=== PATIENT | male | born 1930 | race Caucasian/White ===

== ENCOUNTER → 2016-05-28 | Outpatient (CLI) | payer OTHER ==
[~2016-05-28] MED LIST: ALL300 PO; CHOL2000 PO; CLON1TAB3 PO; CYAN100020 PO; ESCI10TA17 PO; FERR325T51 PO; FESO4TAB PO; FINA5TAB PO; FRRS300 PO; GABA-113 PO; LEVO50TA6 PO; METF500T5 PO; SIMV20TA2 PO; URX/10 PO
[2016-05-28 13:11] LABS: ALT/SGPT 21 U/L (12-78); AST/SGOT 18 U/L (15-37); BLOOD UREA NITROGEN 20 mg/dl (7-18); BUN/CREATININE RATIO 16.7 (10-20); CARBON DIOXIDE 30 mmol/L (21-32); CHLORIDE 106 mmol/L (98-107); GLUCOSE 109 mg/dl (70-99); POTASSIUM 4.5 mmol/L (3.5-5.1); SODIUM 141 mmol/L (136-145)
[2016-05-28 13:16] LABS: ALB/GLOB RATIO 1.1 (0.9-2); ALKALINE PHOSPHATASE 63 U/L (45-117); CHOLESTEROL 140 mg/dl (0-200); CHOLESTEROL/HDL RATIO 2.5; HDL CHOLESTEROL 56 mg/dl; LDL CHOLESTEROL CALCULATED 66 mg/dl; TRIGLYCERIDES 89 mg/dl (0-150); VERY LOW DENSITY LIPOPROT CALC 18 mg/dl
[2016-05-28 13:23] LABS: ESTIMATED AVERAGE GLUCOSE 143 mg/dl; HA1C FLAG Normal (Normal)
[2016-05-28 13:52] LABS: RATIO 104.4 mcg/mg (0-30.0)
[2016-05-28 14:53] LABS: BASO % 0.3 %; BASO ABS # 0.02 K/uL (0-0.2); COMPLETE YES; EOS % 11.4 %; HEMATOCRIT 35.3 % (42-52); IG% 0.3 %; LYMPH % 38.9 %; LYMPH ABS # 2.76 K/uL (1.2-3.4); MEAN CELL VOLUME 94.4 fL (80-100); MEAN CORPUSCULAR HGB CONC 32.9 g/dl (32-36); MEAN PLATELET VOLUME 11.7 fL (7.4-10.4); MONO % 9.4 %; NEUT % 39.7 %; PLATELET COUNT 155 K/uL (130-400); RED BLOOD COUNT 3.74 M/uL (4.7-6.1); WHITE BLOOD COUNT 7.09 K/uL (4.8-10.8)
--- NOTE | 2016-06-01 13:28 | CODING QUERY MEDICAL NECESSITY ---
SUPPORTING DIAGNOSIS NEEDED A supporting diagnosis is required for the test/procedure performed on this patient in order for us to be reimbursed by the patient's insurance. Please provide a supporting diagnosis for the following test/procedure listed below next to the test name along with your signature. *If there is no additional diagnosis for this patient that would support the following test/procedure please document that below next to the test/procedure. Test(s)/Procedure(s) that require a supporting diagnosis: * GLYCATED HEMOGLOBIN DIAGNOSIS: * DOS: 05/28/16 Provider Signature: Date: Thank you Alesia Khan Health Information Management Once completed, please kindly fax back to [phone] For questions please call [phone]
== END | disposition home or self-care (01) ==
LOC: C.LABPVFM 09:25
PROVIDERS: ATTEND Family Medicine
DX: E78.00 Pure hypercholesterolemia, unspecified (principal); C44.91 Basal cell carcinoma of skin, unspecified; F32.9 Major depressive disorder, single episode, unspecified; E03.9 Hypothyroidism, unspecified; D64.9 Anemia, unspecified; E11.9 Type 2 diabetes mellitus without complications

== ENCOUNTER → 2016-06-29 | Outpatient (CLI) | payer OTHER ==
[~2016-06-29] VITALS: Ht 175.3 cm; Wt 110.0 kg
[2016-06-29 14:44] VITALS: BP 109/63; PULSE 82; Ht 175.3 cm; Wt 110.0 kg
== END | disposition home or self-care (01) ==
LOC: C.NEUR 12:58
PROVIDERS: ATTEND Internal Medicine Pulmonary Disease
DX: G47.33 Obstructive sleep apnea (adult) (pediatric) (principal)

== ENCOUNTER 2016-08-27 14:47 | Emergency (ER) | payer OTHER ==
[~2016-08-27] VITALS: Ht 172.7 cm; Wt 112.4 kg
[~2016-08-27 14:47] MED LIST changes: -FRRS300 PO
[2016-08-27 14:53] VITALS: TEMP 37; Ht 172.7 cm; Wt 112.4 kg
[2016-08-27] MEDS ORDERED: GELATIN SPONGE SZ 100 EXT STA (15:19)
[2016-08-27] MEDS ORDERED: FRRS300 PO (15:44)
[2016-08-27] MEDS ORDERED: ALL300 PO (15:44)
--- NOTE | 2016-08-27 16:12 | EMERGENCY ROOM VISIT NOTE ---
ED Visit Note First contact with patient: 14:57 The patient was seen and examined with Fazal Odell PA-C. I agree with the history, physical and findings. Please see the note for disposition and details.
[2016-08-27 16:24] VITALS: BP 129/60; PULSE 64; O2SAT 94
--- NOTE | 2016-08-28 00:31 | EMERGENCY ROOM VISIT NOTE ---
ED Visit Note First contact with patient: 14:57 Chief Complaint: Fall. History of Present Illness: Mr. Frances is an 86-year-old white male who arrives in the ED via ambulance complaining of left forearm pain. Patient reports 2 days ago he tripped over a dog leash and injured his left forearm. He reports he sustained a superficial skin tear and today when his was changing the dressings his skin tear started bleeding and they were not able to control at home. They called local doctor told him they could not see him and recommended that he come into the ED. Currently patient is complaining of discomfort in the area of his skin abrasion over the lateral aspect of the proximal left forearm. He describes his discomfort as a burning sensation. He does not rated his discomfort because he really does not believe this is a pain. He does notice his discomfort increases with palpation. He has not identified any aggravating or alleviating factors related to the discomfort. He has not taken any medications for this discomfort prior to arrival at the hospital. He denies any associated symptoms with his fall or his injury included lightheaded and dizziness before his fall, striking his head at the time of the fall, loss of consciousness at the time of the fall, signs of head injury since the fall, neck pain, back pain, chest pain , shortness of breath, abdominal pain, nausea, vomiting, left upper extremity weakness/numbness/tingling, left shoulder, left elbow and left wrist pain. Review of Systems: As noted above in history of present illness. 8 body systems were reviewed and found to be negative as noted above. Past Medical History: (1) BODY MASS INDEX 40 AND OVER, ADULT (2) GOUT NOS (3) HYPERTENSION NOS (4) PURE HYPERCHOLESTEROLEM (5) Replacement of total knee joint (6) Syncope Current Medications: Medications Dose Route/Sig Max Daily Dose Days Date Category Ferrous Sulfate 325 Mg Tab 325 Mg PO DAILY 08/27/16 Reported Allopurinol 300 Mg Tab 300 Mg PO DAILY 08/27/16 Reported Glucophage Er (Metformin HCl) 500 Mg Tab 1,000 Mg PO QDD 08/07/15 Reported Toviaz (Fesoterodine Fumarate) 4 Mg Tab 4 Mg PO DAILY 90 08/07/15 Reported Klonopin (Clonazepam) 1 Mg Tab 0.5 Mg PO HS 08/07/15 Reported Levothyroxine Sodium 50 Mcg Tab 50 Mcg PO DAILY 90 08/07/15 Reported Lexapro (Escitalopram Oxalate) 10 Mg Tab 10 Mg PO DAILY 08/07/15 Reported Neurontin (Gabapentin) 300 Mg Cap 300 Mg PO HS 08/07/15 Reported Zocor (Simvastatin) 20 Mg Tab 20 Mg PO QPM 03/23/13 Reported Proscar (Finasteride) 5 Mg Tab 5 Mg PO DAILY 03/23/13 Reported Allergies to Medications: Oxycodone, sulfa. Social History: Patient is currently retired; he lives with his and feels safe in his home environment; he denies tobacco and alcohol use. Tetanus Immunization Status: Patient reports up-to-date. Physical Examination: Vital Signs: Date Time Temp Pulse Resp B/P Pulse Ox O2 Delivery O2 Flow Rate FiO2 08/27/16 16:24 64 18 129/60 94 08/27/16 14:53 37.0 68 18 131/63 97 Room Air GENERAL: 86-year-old male in mild distress due to pain, nontoxic-appearing, afebrile and hemodynamically stable. NEUROLOGICAL: Awake, alert and oriented to person, place and time. Answering questions appropriately and following commands. Normal gait. Good hand eye coordination. No focal motor or sensory deficits. Cranial nerves II through XII grossly intact. Good short-term and long-term recall. SKIN: Warm, dry and pink. Left Forearm: Proximal aspect of the lateral forearm shows a 7.6 cm skin tear gaping approximately 2 cm with active bleeding. HEENT: Atraumatic and normocephalic. Skull: No bony deformity, depressions or tenderness. No raccoon's eyes or dc signs. No drainage from the ears or the nostril; no hemotympanum. Face: No bony tenderness, swelling or ecchymosis. PERRLA. EOMI without nystagmus. Sclera white and conjunctiva pink. No malocclusion. No intraoral trauma. Airway patent. Speech normal. Trachea midline. No jugular venous distention. BACK: No tenderness over the bony cervical and thoracic spine. Full range of motion of the cervical spine. THORAX: Lungs sounds are clear to auscultation and equal bilaterally with symmetrical chest wall. ABDOMEN: Flat, soft and nontender. Positive bowel sounds in all quadrants. No guarding, rigidity or organomegaly. UPPER EXTREMITIES: No gross bony deformities. No tenderness over the shoulders , elbows, forearms, wrists and hands. Mild tenderness over his skin tear on the left elbow. No local signs of infection. Full range of motion in flexion and extension of the elbow on the left and pronation and supination of forearm on the left. All distal neurovascular statuses are intact and equal bilaterally. LOWER EXTREMITIES: No gross bony deformities. No shortening or malrotation of the extremities. No tenderness in the hips, knees or ankles. There is some mild erythema over the medial aspect of the right ankle where the patient reports the dog leash tripped him. There is no local swelling. There is no tenderness around the ligamentous structures or the bony structures of the ankle. He is full range of motion in plantar flexion and dorsiflexion of the ankle and flexion and extension of all toes. Distal pulses and sensations are intact. Capillary refill is brisk. ED Course: Patient is assessed as noted above. Wound Care: Complexity: Basic: Verbal consent was obtained after the risks and benefits were explained. The skin was prepped with betadine and a sterile field set. The wound was explored for foreign bodies and none found. Copious irrigation was performed using sterile saline. The flap of skin with his skin tear was full and and half. I did irrigate and remove voice in this area so skin could be stretched out to cover the open wound. With direct pressure the bleeding subsided. Debridement was not performed. The wound edges were visually approximated. To maintain hemostasis a piece of Surgifoam was placed over the wound. A sterile dressing applied. No complications and the patient tolerated the procedure well. Patient's case was reviewed with Dr. Calderon; we agreed on diagnostic approach , treatment, disposition and plan. Patient and were educated about nilson's findings and instructed on his treatment plan; he verbalized understanding and agreement with this plan. Clinical Impression: Left forearm skin tear. Status post fall. Disposition: Patient discharged home in stable condition accompanied by his ; prior to departure he was reassessed and subjectively reported he was pain- free. Plan: Comfort measures, wound care and signs of infection were discussed with the patient and his . Patient was encouraged to follow-up with his PCP or return to the ED for signs of infection or any new/concerning symptoms.
== END 2016-08-27 16:26 | disposition home or self-care (01) ==
LOC: EDBD 14:47 → C.EDC 14:50
DX: S51.812A Laceration without foreign body of left forearm, initial encounter (principal); W18.09XA Striking against other object with subsequent fall, initial encounter; M10.9 Gout, unspecified; I10 Essential (primary) hypertension; E78.00 Pure hypercholesterolemia, unspecified; Z96.659 Presence of unspecified artificial knee joint; Z79.899 Other long term (current) drug therapy

== ENCOUNTER → 2016-10-11 | Outpatient (CLI) | payer OTHER ==
[~2016-10-11] MED LIST changes: -CHOL2000 PO; -CYAN100020 PO; -FERR325T51 PO; +FRRS300 PO; -URX/10 PO
== END | disposition home or self-care (01) ==
LOC: C.PATHSPEC 17:29
PROVIDERS: ATTEND Urology
DX: C67.9 Malignant neoplasm of bladder, unspecified (principal)

== ENCOUNTER → 2016-11-23 | Outpatient (CLI) | payer OTHER ==
[2016-11-23 12:55] LABS: ALT/SGPT 22 U/L (12-78); AST/SGOT 21 U/L (15-37); BLOOD UREA NITROGEN 33 mg/dl (7-18); BUN/CREATININE RATIO 25.2 (10-20); CALCIUM 8.7 mg/dl (8.5-10.1); CARBON DIOXIDE 27 mmol/L (21-32); CHLORIDE 109 mmol/L (98-107); GLUCOSE 99 mg/dl (70-99); POTASSIUM 4.6 mmol/L (3.5-5.1); SODIUM 142 mmol/L (136-145)
[2016-11-23 13:06] LABS: ALKALINE PHOSPHATASE 58 U/L (45-117); CHOLESTEROL 147 mg/dl (0-200); CHOLESTEROL/HDL RATIO 3.2; HDL CHOLESTEROL 46 mg/dl; LDL CHOLESTEROL CALCULATED 85 mg/dl; TRIGLYCERIDES 81 mg/dl (0-150); VERY LOW DENSITY LIPOPROT CALC 16 mg/dl
== END | disposition home or self-care (01) ==
LOC: C.LABPVFM 10:30
PROVIDERS: ATTEND Family Medicine
DX: N40.0 Benign prostatic hyperplasia without lower urinary tract symptoms (principal); E03.9 Hypothyroidism, unspecified; G47.00 Insomnia, unspecified; G47.33 Obstructive sleep apnea (adult) (pediatric); E11.9 Type 2 diabetes mellitus without complications

== ENCOUNTER → 2016-12-28 | Outpatient (CLI) | payer OTHER ==
[~2016-12-28] VITALS: Ht 172.7 cm; Wt 108.9 kg
[2016-12-28 13:12] VITALS: BP 114/62; PULSE 79; Ht 172.7 cm; Wt 108.9 kg
== END | disposition home or self-care (01) ==
LOC: C.NEUR 12:47
PROVIDERS: ATTEND Physician Assistant
DX: G47.33 Obstructive sleep apnea (adult) (pediatric) (principal); G47.34 Idiopathic sleep related nonobstructive alveolar hypoventilation

== ENCOUNTER → 2017-05-23 | Outpatient (CLI) | payer OTHER | END | disposition home or self-care (01) | LOC: C.PATHSPEC 10:55 | PROVIDERS: ATTEND Urology | DX: C67.9 Malignant neoplasm of bladder, unspecified (principal) ==

== ENCOUNTER → 2017-06-03 | Outpatient (CLI) | payer OTHER ==
[2017-06-03 13:52] LABS: HEMOGLOBIN A1C 6.5 % (4.5-5.6)
[2017-06-03 14:01] LABS: ALBUMIN 3.5 gm/dl (3.4-5.0); BLOOD UREA NITROGEN 20 mg/dl (7-18); CALCIUM 8.6 mg/dl (8.5-10.1); CARBON DIOXIDE 29 mmol/L (21-32); CREATININE 1.21 mg/dl (0.60-1.40); GLUCOSE 112 mg/dl (70-99); POTASSIUM 4.5 mmol/L (3.5-5.1); SODIUM 138 mmol/L (136-145)
[2017-06-03 14:09] LABS: ALKALINE PHOSPHATASE 67 U/L (45-117); ALT/SGPT 18 U/L (12-78); AST/SGOT 18 U/L (15-37); CHOLESTEROL 140 mg/dl (0-200); LDL CHOLESTEROL CALCULATED 75 mg/dl; TOTAL PROTEIN 7.2 gm/dl (6.4-8.2)
== END ==
LOC: C.LABPVFM 09:20
PROVIDERS: ATTEND Family Medicine
DX: I12.9 Hypertensive chronic kidney disease with stage 1 through stage 4 chronic kidney disease, or unspecified chronic kidney disease (principal); N18.3 Chronic kidney disease, stage 3 (moderate); E78.00 Pure hypercholesterolemia, unspecified; E11.9 Type 2 diabetes mellitus without complications; G47.00 Insomnia, unspecified; C67.9 Malignant neoplasm of bladder, unspecified; F32.9 Major depressive disorder, single episode, unspecified; E03.9 Hypothyroidism, unspecified

== ENCOUNTER → 2017-07-02 | Outpatient (CLI) | payer OTHER ==
[~2017-07-02] VITALS: Ht 172.7 cm; Wt 109.3 kg
[2017-07-02 15:10] VITALS: BP 112/61; PULSE 68; Ht 172.7 cm; Wt 109.3 kg
== END | disposition home or self-care (01) ==
LOC: C.NEUR 13:35
PROVIDERS: ATTEND Internal Medicine Pulmonary Disease
DX: G47.33 Obstructive sleep apnea (adult) (pediatric) (principal); G47.00 Insomnia, unspecified

== ENCOUNTER → 2017-12-31 | Outpatient (CLI) | payer OTHER ==
[~2017-12-31] VITALS: Ht 172.7 cm; Wt 106.0 kg
[~2017-12-31] MED LIST changes: +CLON1TAB10 PO; -CLON1TAB3 PO; +GLC/500 PO
[2017-12-31 13:45] VITALS: BP 83/50; PULSE 83; Ht 172.7 cm; Wt 106.0 kg
== END | disposition home or self-care (01) ==
LOC: C.NEUR 13:10
PROVIDERS: ATTEND Physician Assistant Medical
DX: G47.33 Obstructive sleep apnea (adult) (pediatric) (principal); G47.34 Idiopathic sleep related nonobstructive alveolar hypoventilation; E66.9 Obesity, unspecified; G47.00 Insomnia, unspecified; R53.83 Other fatigue; R09.82 Postnasal drip; J31.0 Chronic rhinitis; R09.81 Nasal congestion

== ENCOUNTER 2018-01-08 17:13 | Emergency (ER) | payer OTHER ==
[~2018-01-08] VITALS: Ht 172.7 cm; Wt 107.8 kg
[~2018-01-08 17:13] MED LIST changes: -GLC/500 PO
[2018-01-08 17:16] VITALS: Ht 172.7 cm; Wt 107.8 kg
[2018-01-08] MEDS ORDERED: GLC/500 PO (17:55)
[2018-01-08] MEDS ORDERED: SODIUM CHLORIDE 0.9% 1000ML 1,000 ML IV STA (18:32)
[2018-01-08] MEDS ORDERED: SODIUM CHLORIDE 0.9% 1000ML 500 ML IV STA (18:32)
--- NOTE | 2018-01-08 18:34 | EMERGENCY ROOM VISIT NOTE ---
History Report prepared by Jason: Rg Mcclellan Under the Supervision of: Dr. Fazal To M.D. First contact with patient: 17:20 Chief Complaint: UNABLE TO VOID Stated Complaint: CAN'T URINATE Nursing Triage Summary: pt reports not being able to void since 2129 last night History of Present Illness The patient is a 87 year old male who presents to the Emergency Room with complaints of urinary retention. The patient notes he hasn't urinated for the last 24 hours. He states he has tried to go, but only had a small dribble of urine. He states he called his PCP who advised he come here. The patient denies any pain or pressure to his abdomen. The patient denies any recent illness. He does state he had diarrhea x10 days ago, and had a very scant amount today. Pt denies LOC, headache, fevers, chills, diaphoresis, visual changes, neck pain , chest pain, breathing difficulties, nausea, vomiting, abdominal pain, back pain, melena, hematochezia, numbness, weakness, lymphadenopathy, rash, or other complaints. Source of History: patient Onset: 1 day Symptom Intensity: moderate Timing: constant Review of Systems See HPI for pertinent positives and negatives. A total of ten systems were reviewed and were otherwise negative. Constitutional: No fever, No chills Respiratory: No shortness of breath Cardiovascular: No chest pain Abdomen: + diarrhea, No pain, No nausea, No vomiting, No constipation Genitourinary - Male: + urinary retention, No hematuria, No dysuria, No urinary frequency Integumentary: No rash Past Medical & Surgical Medical Problems: (1) BODY MASS INDEX 40 AND OVER, ADULT (2) GOUT NOS (3) HYPERTENSION NOS (4) PURE HYPERCHOLESTEROLEM (5) Replacement of total knee joint (6) Syncope Family History Patient reports no known family medical history. Social History Smoking Status: Former Smoker Alcohol Use: none Drug Use: none Marital Status: Housing Status: lives with family Occupation Status: retired Current/Historical Medications Scheduled Allopurinol (Allopurinol), 300 MG PO DAILY Clonazepam (Klonopin), 0.5 MG PO HS Escitalopram (Lexapro), 10 MG PO DAILY Ferrous Sulfate (Ferrous Sulfate), 325 MG PO DAILY Fesoterodine Fumarate (Toviaz), 4 MG PO DAILY Finasteride (Proscar), 5 MG PO DAILY Levothyroxine Sodium (Levothyroxine Sodium), 50 MCG PO DAILY Metformin Hcl (Glucophage), 500 MG PO DAILY Simvastatin (Zocor), 20 MG PO QPM Allergies Coded Allergies: Sulfa Antibiotics (Verified Allergy, Unknown, HIVES, 01/08/18) Oxycodone (Verified Adverse Reaction, Severe, CONFUSION;AGITATION, 01/08/18 ) Physical Exam Vital Signs Date Time Temp Pulse Resp B/P (MAP) Pulse Ox O2 Delivery O2 Flow Rate FiO2 01/08/18 21:23 65 17 141/73 100 Room Air 01/08/18 19:44 62 15 137/68 99 Room Air 01/08/18 19:01 59 01/08/18 17:16 36.6 72 20 146/66 97 Room Air Physical Exam GENERAL: Awake, alert, well-appearing, in no distress HENT: Normocephalic, atraumatic. Oropharynx unremarkable. EYES: Normal conjunctiva. Sclera non-icteric. NECK: Supple. No nuchal rigidity. FROM. No masses. RESPIRATORY: Clear to auscultation. No wheezes. No rales. Normal respiratory effort. CARDIAC: Normal rate. Normal rhythm. No murmurs. No rubs. Extremities warm and well perfused. Pulses equal. No JVD. GI: Soft, non-distended. No tenderness to palpation. No rebound or guarding. No masses. : Normal male. RECTAL: Deferred. MUSCULOSKELETAL: Atraumatic. Chest examination reveals no tenderness. The back is symmetrical on inspection without obvious abnormality. There is no CVA tenderness to palpation. No joint edema. LOWER EXTREMITIES: Calves are equal size bilaterally and non-tender. No edema. No discoloration. NEURO: Normal sensorium. No sensory or motor deficits noted. SKIN: No rash or jaundice noted. Medical Decision & Procedures ER Provider Diagnostic Interpretation: Radiology results as stated below per my review and radiologist interpretation: ABD/PELVIS NO IV OR ORAL CONT CLINICAL HISTORY: 87 years-old Male presenting with anuria. TECHNIQUE: Multidetector CT of the abdomen and pelvis was performed without the use of intravenous contrast. IV contrast: None. A dose lowering technique was used consistent with the principles of ALARA (as low as reasonably achievable). COMPARISON: 10/05/2011. CT DOSE (mGy.cm): The estimated cumulative dose is 1168.33 mGy.cm. FINDINGS: Plastic Tubing Insulation Supervisor topogram: Left total hip arthroplasty. Lung bases: Minimal basilar opacities, likely atelectasis. Multichamber enlargement of the heart. Coronary artery, aortic valve, and mitral annular calcification. No pericardial or pleural effusion. Liver: Normal morphology. Density consistent with hepatic steatosis. Biliary: No gross biliary ductal dilatation allowing for noncontrast technique. Normal gallbladder. Pancreas: Mild parenchymal atrophy. Spleen: Normal noncontrast appearance. Adrenal glands: Normal noncontrast appearance. Kidneys and ureters: Few hypodensities in the kidneys likely cysts, including multiple left parapelvic cysts. Renal cortical atrophy and expansion of renal sinus fat suggested bilaterally. No nephrolithiasis. Renovascular calcification. Mild nonspecific perinephric fat stranding. No hydronephrosis. Ureters nondistended. Bladder: Decompressed with a Lopez catheter and contains several foci of gas likely due to catheterization. Pelvic organs: Prostate enlargement likely secondary to benign prostatic hyperplasia. Bowel: Diverticulosis of the proximal sigmoid colon and distal descending colon. No pericolonic inflammatory change or bowel wall thickening. No bowel obstruction. The appendix is normal and atrophic. Trace hiatal hernia. Peritoneal cavity: No free fluid or intraperitoneal gas. Lymph nodes: No gross lymphadenopathy allowing for noncontrast technique. Vasculature: Atherosclerosis of the abdominal aorta with mild ectasia in the infrarenal portion measuring up to 3 cm in diameter. Abdominal wall: Suggestion of a fat-containing left inguinal hernia. Small fat-containing umbilical hernia. Musculoskeletal: Degenerative changes of the spine. Total left hip arthroplasty. Degenerative changes of the right hip, sacroiliac joints, and pubic symphysis. Osteopenia. Flowing anterior osteophytes may suggest diffuse idiopathic skeletal hyperostosis. IMPRESSION: 1. No hydronephrosis. No nephrolithiasis. Urinary bladder decompressed with a Lopez catheter. 2. Suggestion of renal cortical atrophy, which could suggest chronic renal insufficiency. 3. Diverticulosis without evidence of diverticulitis. 4. Hepatic steatosis. Laboratory Results 01/08/18 19:03 Red Blood Count 3.32, Mean Corpuscular Volume 94.3, Mean Corpuscular Hemoglobin 30.7, Mean Corpuscular Hemoglobin Concent 32.6, Mean Platelet Volume 11.6, Neutrophils (%) (Auto) 56.5, Lymphocytes (%) (Auto) 26.6, Monocytes (%) (Auto) 9.1, Eosinophils (%) (Auto) 7.7, Basophils (%) (Auto) 0.0, Neutrophils # (Auto) 4.05, Lymphocytes # (Auto) 1.91, Monocytes # (Auto) 0.65, Eosinophils # (Auto) 0.55, Basophils # (Auto) 0.00 01/08/18 19:03 Test 01/08/18 19:03 01/08/18 19:50 White Blood Count 7.17 K/uL (4.8-10.8) Red Blood Count 3.32 M/uL (4.7-6.1) Hemoglobin 10.2 g/dL (14.0-18.0) Hematocrit 31.3 % (42-52) Mean Corpuscular Volume 94.3 fL (80-100) Mean Corpuscular Hemoglobin 30.7 pg (25-34) Mean Corpuscular Hemoglobin Concent 32.6 g/dl (32-36) Platelet Count 138 K/uL (130-400) Mean Platelet Volume 11.6 fL (7.4-10.4) Neutrophils (%) (Auto) 56.5 % Lymphocytes (%) (Auto) 26.6 % Monocytes (%) (Auto) 9.1 % Eosinophils (%) (Auto) 7.7 % Basophils (%) (Auto) 0.0 % Neutrophils # (Auto) 4.05 K/uL (1.4-6.5) Lymphocytes # (Auto) 1.91 K/uL (1.2-3.4) Monocytes # (Auto) 0.65 K/uL (0.11-0.59) Eosinophils # (Auto) 0.55 K/uL (0-0.5) Basophils # (Auto) 0.00 K/uL (0-0.2) RDW Standard Deviation 47.5 fL (36.4-46.3) RDW Coefficient of Variation 13.7 % (11.5-14.5) Immature Granulocyte % (Auto) 0.1 % Immature Granulocyte # (Auto) 0.01 K/uL (0.00-0.02) Anion Gap 8.0 mmol/L (3-11) Est Creatinine Clear Calc Drug Dose 50.9 ml/min Estimated GFR () 60.6 Estimated GFR (Non- 52.3 BUN/Creatinine Ratio 18.4 (10-20) Calcium Level 8.9 mg/dl (8.5-10.1) Total Bilirubin 0.5 mg/dl (0.2-1) Direct Bilirubin 0.1 mg/dl (0-0.2) Aspartate Amino Transf (AST/SGOT) 22 U/L (15-37) Alanine Aminotransferase (ALT/SGPT) 23 U/L (12-78) Alkaline Phosphatase 60 U/L (45-117) Troponin I < 0.015 ng/ml (0-0.045) Total Protein 6.9 gm/dl (6.4-8.2) Albumin 3.5 gm/dl (3.4-5.0) Lipase 129 U/L (73-393) Urine Color YELLOW Urine Appearance CLEAR (CLEAR) Urine pH 7.0 (4.5-7.5) Urine Specific [place] 1.007 (1.000-1.030) Urine Protein NEG (NEG) Urine Glucose (UA) NEG (NEG) Urine Ketones NEG (NEG) Urine Occult Blood 2+ (NEG) Urine Nitrite NEG (NEG) Urine Bilirubin NEG (NEG) Urine Urobilinogen NEG (NEG) Urine Leukocyte Esterase NEG (NEG) Urine WBC (Auto) 1-5 /hpf (0-5) Urine RBC (Auto) 0-4 /hpf (0-4) Urine Hyaline Casts (Auto) 1-5 /lpf (0-5) Urine Epithelial Cells (Auto) 10-20 /lpf (0-5) Urine Bacteria (Auto) NEG (NEG) Laboratory results reviewed by me Medications Administered Medications (Trade) Dose Ordered Sig/Jackie Route Start Time Stop Time Status Last Admin Dose Admin Sodium Chloride 1,000 ml @ 125 mls/hr Q8H STAT IV 01/08/18 18:32 18 02:31 01/08/18 18:32 125 MLS/HR Sodium Chloride 500 ml @ 999 mls/hr Q31M STAT IV 01/08/18 18:32 01/08/18 19:02 DC 01/08/18 19:30 999 MLS/HR ECG Per My Interpretation Indication: abdominal pain Rate (beats per minute): 60 Rhythm: normal sinus Findings: other (No ST elevations or depressions. No PACs or PVCs. T-Wave inversion in Lead 3) Comparison ECG Date: When compared to July 2015, T-Wave inversions are new. Medical Decision Triage Nursing notes reviewed and agree them. Additional history obtained from the family. The patient's history was concerning for urinary retention. Differential diagnosis: Etiologies such as urinary retention, UTI, prostatitis, renal disease, dehydration, renal colic bladder outlet obstruction, neurologic, as well as others were entertained. Physical examination findings: As above. ER treatment provided: Lopez catheter placement with less than 200 mL of urine removed. On reassessment the patient felt better. Diagnostic interpretation by me: The labs revealed an unremarkable CBC except for mild anemia. Chemistry panel unremarkable.. Urinalysis revealed no signs of infection. Imaging studies: CT of the abdomen and pelvis as above. The patient had his catheter removed. He was able to urinate. He notes having a moderate amount of diarrhea last week. He feels a little dry. He does have an elevated BUN to creatinine ratio. The patient has normal GFR and renal function otherwise. He is feeling much better after hydration. I suspect he was mildly dehydrated. The patient will orally hydrate and follow up closely in the office. By the evaluation outlined above emergent etiologies such as appendicitis, diverticulitis, mesenteric ischemia, aortic pathology, infections, inflammatory bowel disease, PUD, biliary pathology, UTI, as well as others were deemed relatively unlikely. The patient and family were informed about the findings as listed above. All questions were answered and they were pleased with the treatment. Return instructions were outlined and the patient was discharged in stable condition. The patient was seen and examined with Dr. Ray Wick, resident physician. We discussed the case and treatments ordered, reviewed the results, and determine the disposition. I have been directly involved with the management and disposition as well as independently evaluated the patient as documented in this note. Outpatient prescription management: Referral: The patient was referred back to his primary care physician for follow-up in 2 to 3 days for a recheck of the current condition. Medication Reconcilliation Current Medication List: was personally reviewed by me Blood Pressure Screening Patient's blood pressure: Elevated blood pressure Blood pressure disposition: Referred to PCP Impression Primary Impression: Oliguria Additional Impression: Dehydration Scribe Attestation The scribe's documentation has been prepared under my direction and personally reviewed by me in its entirety. I confirm that the note above accurately reflects all work, treatment, procedures, and medical decision making performed by me. Departure Information Dispostion Home / Self-Care Referrals Janny Davenport M.D. (PCP) Forms HOME CARE DOCUMENTATION FORM, IMPORTANT VISIT INFORMATION, WORK / SCHOOL INSTRUCTIONS Patient Instructions My [facility] Additional Instructions Rest. Drink plenty of fluids. Continue current medications. Follow-up with your primary care physician in 2 to 3 days for a recheck of your current condition. Return to the emergency department for difficulty urinating, fever, vomiting, abdominal pain, or as needed. Problem Qualifiers
[2018-01-08 19:20] LABS: EOS % 7.7 %; EOS ABS # 0.55 K/uL (0-0.5); HEMATOCRIT 31.3 % (42-52); HEMOGLOBIN 10.2 g/dL (14.0-18.0); IG# 0.01 K/uL (0.00-0.02); LYMPH % 26.6 %; LYMPH ABS # 1.91 K/uL (1.2-3.4); MEAN CELL VOLUME 94.3 fL (80-100); MEAN CORPUSCULAR HEMOGLOBIN 30.7 pg (25-34); MEAN CORPUSCULAR HGB CONC 32.6 g/dl (32-36); MEAN PLATELET VOLUME 11.6 fL (7.4-10.4); MONO % 9.1 %; MONO ABS # 0.65 K/uL (0.11-0.59); NEUT % 56.5 %; NEUT ABS # 4.05 K/uL (1.4-6.5); PLATELET COUNT 138 K/uL (130-400); RED CELL DISTRIBUTION WIDTH CV 13.7 % (11.5-14.5); RED CELL DISTRIBUTION WIDTH SD 47.5 fL (36.4-46.3); WHITE BLOOD COUNT 7.17 K/uL (4.8-10.8)
--- NOTE | 2018-01-08 19:34 | DIAGNOSTIC IMAGING REPORT ---
ABD/PELVIS NO IV OR ORAL CONT CLINICAL HISTORY: 87 years-old Male presenting with anuria. TECHNIQUE: Multidetector CT of the abdomen and pelvis was performed without the use of intravenous contrast. IV contrast: None. A dose lowering technique was used consistent with the principles of ALARA (as low as reasonably achievable). COMPARISON: 10/05/2011. CT DOSE (mGy.cm): The estimated cumulative dose is 1168.33 mGy.cm. FINDINGS: Applied Researcher topogram: Left total hip arthroplasty. Lung bases: Minimal basilar opacities, likely atelectasis. Multichamber enlargement of the heart. Coronary artery, aortic valve, and mitral annular calcification. No pericardial or pleural effusion. Liver: Normal morphology. Density consistent with hepatic steatosis. Biliary: No gross biliary ductal dilatation allowing for noncontrast technique. Normal gallbladder. Pancreas: Mild parenchymal atrophy. Spleen: Normal noncontrast appearance. Adrenal glands: Normal noncontrast appearance. Kidneys and ureters: Few hypodensities in the kidneys likely cysts, including multiple left parapelvic cysts. Renal cortical atrophy and expansion of renal sinus fat suggested bilaterally. No nephrolithiasis. Renovascular calcification. Mild nonspecific perinephric fat stranding. No hydronephrosis. Ureters nondistended. Bladder: Decompressed with a Lopez catheter and contains several foci of gas likely due to catheterization. Pelvic organs: Prostate enlargement likely secondary to benign prostatic hyperplasia. Bowel: Diverticulosis of the proximal sigmoid colon and distal descending colon. No pericolonic inflammatory change or bowel wall thickening. No bowel obstruction. The appendix is normal and atrophic. Trace hiatal hernia. Peritoneal cavity: No free fluid or intraperitoneal gas. Lymph nodes: No gross lymphadenopathy allowing for noncontrast technique. Vasculature: Atherosclerosis of the abdominal aorta with mild ectasia in the infrarenal portion measuring up to 3 cm in diameter. Abdominal wall: Suggestion of a fat-containing left inguinal hernia. Small fat-containing umbilical hernia. Musculoskeletal: Degenerative changes of the spine. Total left hip arthroplasty. Degenerative changes of the right hip, sacroiliac joints, and pubic symphysis. Osteopenia. Flowing anterior osteophytes may suggest diffuse idiopathic skeletal hyperostosis. IMPRESSION: 1. No hydronephrosis. No nephrolithiasis. Urinary bladder decompressed with a Lopez catheter. 2. Suggestion of renal cortical atrophy, which could suggest chronic renal insufficiency. 3. Diverticulosis without evidence of diverticulitis. 4. Hepatic steatosis. Electronically signed by: Wayne Santos M.D. 01/08/2018 7:32 PM Dictated Date/Time: 01/08/2018 7:24 PM
[2018-01-08 19:47] LABS: ALBUMIN 3.5 gm/dl (3.4-5.0); ALKALINE PHOSPHATASE 60 U/L (45-117); ALT/SGPT 23 U/L (12-78); AST/SGOT 22 U/L (15-37); BLOOD UREA NITROGEN 23 mg/dl (7-18); CALCIUM 8.9 mg/dl (8.5-10.1); CARBON DIOXIDE 25 mmol/L (21-32); CREATININE 1.24 mg/dl (0.60-1.40); GLUCOSE 91 mg/dl (70-99); LIPASE 129 U/L (73-393); POTASSIUM 4.9 mmol/L (3.5-5.1); SODIUM 139 mmol/L (136-145); TOTAL PROTEIN 6.9 gm/dl (6.4-8.2)
[2018-01-08] MEDS ORDERED: SODIUM CHLORIDE 0.9% 250ML 250 ML IV STA (21:29)
[2018-01-08 21:42] VITALS: BP 141/73; PULSE 65; TEMP 36.6; O2SAT 100
== END 2018-01-08 21:47 | disposition home or self-care (01) ==
LOC: C.EDB 17:14 → C.EDA 21:47
DX: R34 Anuria and oliguria (principal); E86.0 Dehydration; I10 Essential (primary) hypertension; E78.00 Pure hypercholesterolemia, unspecified; M10.9 Gout, unspecified; Z87.891 Personal history of nicotine dependence; Z79.84 Long term (current) use of oral hypoglycemic drugs; Z79.899 Other long term (current) drug therapy; Z88.2 Allergy status to sulfonamides; Z88.5 Allergy status to narcotic agent